=== PATIENT | female | born 1985 | race Caucasian/White ===

== ENCOUNTER 2022-02-18 09:45 | Outpatient (CLI) | payer OTHER, SELFPAY ==
--- NOTE | 2022-02-18 09:45 | CRLHL7_ITS ---
For Patients: As a result of the Century Cures Act, medical imaging exams and procedure reports are released immediately into your electronic medical record. You may view this report before your referring provider. If you have questions, please contact your health care provider. CLINICAL HISTORY: FOLLOW UP RIGHT OVARIAN COMPLEX CYST Comparison: 01/10/2022 TECHNIQUE: 2D nagy scale and color Doppler images were acquired of the pelvis using a transvaginal approach. FINDINGS: On transvaginal imaging, the uterus measures 7.9 x 4.2 x 5.0 cm. A small anterior mid uterine fibroid appears to be present measuring 1.0 x 0.9 x 0.8 cm. The endometrial lining appears normal and measures 10 mm in thickness. The left ovary is absent and the right ovary measures 5.2 x 2.2 x 4.0 cm. The right ovary demonstrates normal arterial and venous blood flow on color Doppler analysis. There are no suspicious fluid collections within the cul-de-sac. Hypoechoic cyst right ovary measuring 1.6 x 1.4 x 1.5 cm. Anechoic simple right ovarian cyst measuring 2.6 x 1.9 x 2.6 cm. IMPRESSION: 1.6 cm hemorrhagic right ovarian cyst and 2.6 cm simple right ovarian cyst. Both are considered normal. Dictated by Kirt Villareal MD @ 02/18/2022 10:48:18 AM (Electronically Signed)
== END 2022-02-18 09:46 | disposition home or self-care (01) ==
LOC: US 09:47
PROVIDERS: Visit Provider Physician Assistant
DX: N83.201 Unspecified ovarian cyst, right side (principal); N83.291 Other ovarian cyst, right side
CPT/HCPCS: 76830; 93976

== ENCOUNTER 2023-07-03 10:47 | Outpatient (CLI) | payer OTHER, SELFPAY | END 2023-07-03 10:48 | disposition home or self-care (01) | PROVIDERS: Visit Provider Obstetrics & Gynecology | DX: N97.9 Female infertility, unspecified (principal) | CPT/HCPCS: 82670; 83001; 83002; 84146; 84443 ==

== ENCOUNTER 2023-07-22 08:48 | Outpatient (CLI) | payer OTHER, SELFPAY ==
--- NOTE | 2023-07-22 09:15 | CRLHL7_ITS ---
For Patients: As a result of the Century Cures Act, medical imaging exams and procedure reports are released immediately into your electronic medical record. You may view this report before your referring provider. If you have questions, please contact your health care provider. Indication: Female infertility, unspecified Technique: Hysterosalpingogram performed in routine fashion. Fluoroscopic time 30 seconds. IMPRESSION: Postop changes of partial left salpingectomy. Normal right fallopian tube with normal spillage into the peritoneal cavity. No endometrial canal filling defect. Dictated by Kirt Villareal MD @ 07/22/2023 10:17:54 AM (Electronically Signed)
--- NOTE | 2023-07-22 09:44 | P.GYNPRC_ITS ---
Procedure Note Time Seen by Provider: 09:20 Date of procedure: 07/22/23 Pre-op diagnosis: Infertility Post-op diagnosis: same Procedure: Hysterosalpingogram Anesthesia: none Complications: None Surgeon: Sonu Vergara MD Estimated blood loss (mL): 0 IV fluids (mL): 0 Procedure Description: POSTPROCEDURE DIAGNOSIS: 1. Infertility 2. Patent fallopian tube on the right 3. Note of surgically absent left fallopian tube (s/p LSO for torsion in 2016), though suspicious for some residual tube on the left vs contrast artifact NAME OF PROCEDURE: Hysterosalpingogram. ANESTHESIA: None. COMPLICATIONS: None. PROCEDURE: After obtaining written consent, the patient was placed in the dorsal lithotomy position on the x-ray table. An open-sided bivalve speculum was introduced into the vagina and the cervix easily visualized. The cervix and vagina were then prepped with Betadine. A balloon tipped double-lumen catheter was then gently inserted through the cervical opening into the uterine cavity to the level of the fundus. The balloon was insufflated with 3 mL of air. The patient was repositioned in the supine position, covered, and the radiologist was called to the room. A hysterosalpingogram was then performed. A total of 8 cc of Optiray 300 water soluble contrast dye was injected through the double-lumen catheter under moderate pressure. There was immediate fill of the uterine cavity to the cornua and immediate fill of the right fallopian tube with free spillage. There was question of tubal remnant on the left, however this would be clinically inconsistent with previously reported left salpingo- oophorectomy in 2016, where operative note was reviewed and does describe a left salpingectomy. Suspect this was simply artifact from spillage from the right fallopian tube. The balloon was deflated. The catheter was removed. The speculum was removed. The patient tolerated the procedure well, though she did have moderate cramping discomfort during and just after the procedure. She was discharged to home in stable condition and to follow [facility].
== END 2023-07-22 08:49 | disposition home or self-care (01) ==
LOC: RAD 08:49
PROVIDERS: Visit Provider Obstetrics & Gynecology
DX: N97.9 Female infertility, unspecified (principal)
CPT/HCPCS: 58340; 74740; A4649; Q9967

== ENCOUNTER 2023-09-16 09:34 | Outpatient (CLI) | payer OTHER, SELFPAY ==
[2023-09-16 18:38] LABS: Chlamydia DNA Amplified* NOT DETECTED (No Detected); GC DNA Amplified* NOT DETECTED (No Detected)
== END 2023-09-16 09:35 | disposition home or self-care (01) ==
PROVIDERS: PCP Family Medicine; Visit Provider Registered Nurse
DX: Z34.91 Encounter for supervision of normal pregnancy, unspecified, first trimester (principal); Z3A.08 8 weeks gestation of pregnancy
CPT/HCPCS: 76817; 86592; 86703; 86704; 86706; 86762; 86787; 86803; 86850; 86900; 86901; 87086; 87340; 87491; 87591

== ENCOUNTER 2024-02-10 09:20 | Outpatient (CLI) | payer OTHER, SELFPAY | END 2024-02-10 09:21 | disposition home or self-care (01) | LOC: NFLDREF 02-12 08:44 | PROVIDERS: PCP Family Medicine; Referring Provider Family Medicine; Visit Provider Advanced Practice Midwife | DX: Z34.93 Encounter for supervision of normal pregnancy, unspecified, third trimester (principal); Z3A.29 29 weeks gestation of pregnancy | CPT/HCPCS: 86592 ==

== ENCOUNTER 2024-03-25 09:02 | Outpatient (CLI) | payer OTHER, SELFPAY ==
[2024-03-26 09:48] LABS: Strep B DNA Probe Negative (Negative)
[2024-03-26 10:24] LABS: Strep B Susceptibility Needed? No
--- NOTE | 2024-03-30 07:00 | PC.NURSE ---
Center telephone call less than 37 weeks Date of call: 03/30/2024 Time of call: 0686 Name of person calling: Katherine Donohue phone # to reach you at: in chart patient: P: 2 EDC: 04/23 Gestational age: 36.4 weeks Provider: Reason for calling (patient's words): Pt reports mild contractions or tightening every 5-10 minutes start at 10pm last night. Pt denies leaking of fluid or bleeding. Pt reports baby is moving normally. Pt states she has been drinking plenty of water. Patient is greater than 20 weeks and less than 37 weeks and instructed to come to Center for evaluation. RN offered labor rule out evaluation at [facility] [place]. Pt declined at this time. Patient verbalized understanding: yes Is patient coming for evaluation? Not at this time. Pt chose to stay home for now and continue to track contractions. Pt will call center if planning to come in for triage evaluation. Telephone conversation guided by approved policy and flow chart, Telephone Calls From Patient's, approved at [facility]ology [facility] March 2023.
== END 2024-03-25 09:03 | disposition home or self-care (01) ==
PROVIDERS: PCP Family Medicine; Visit Provider Midwife
DX: Z34.93 Encounter for supervision of normal pregnancy, unspecified, third trimester (principal); Z3A.36 36 weeks gestation of pregnancy
CPT/HCPCS: 87081; 87653

== ENCOUNTER 2024-04-17 00:24 | Inpatient (IN) | payer OTHER, SELFPAY ==
[2024-04-17] VITALS (17 sets, daily range): BP systolic 109–131; BP diastolic 58–90; PULSE 55–85; RESP 16–18; TEMP 36.6–37.3; O2SAT 97–98; BMI 25.3
--- NOTE | 2024-04-17 02:11 | P.LDBA_ITS ---
Subjective History of Present Illness Date Seen: 04/17/24 Narrative: Katherine is a 39 yo at 40 0/7 weeks gestation being admitted to Labor and Delivery for spontaneous onset of labor at 2330 last evening. She reports she was awoke by contractions, went to the bathroom, and had a gush of clear fluid when she returned to bed. She was coping well upon arrival and RN assisted her to side lying release due to back pain. She is supported in labor by her , Pete. Her full history and physical was dictated by JOELLE Lunsford on 04/01/2024. Please see this for details. Specific Issues/Plans G 3 P 2001 Spouse: Pete. Children: Aidan Tucker. Baby: [place]. H&P completed 04/01/2024 by Sury [employer] 1. Advanced maternal age. Genetic screening: Declines Level 2 ultrasound: EFW 97% otherwise normal 2. Precipitous delivery with 2nd baby. Delivered by ED physician. Discussed IOL if advanced dilation at visit otherwise desires to wait until 41 weeks. 3. Mild intermittent asthma. Managed with PRN ProAir. 4. 2016: LSO for ovarian torsion 5. 2019: Laparoscopic reduction of right ovarian torsion Flu: Completed Covid: Completed and boosted x1. Not up-to-date. Recommended. Patient declin es. Tdap: 02/24/2024 OB - Problem Based A/P Additional Plan (1) Pain during labor: Status: Acute (2) AMA (advanced maternal age) multigravida 35+: Status: Acute (3) 40 weeks gestation of : Status: Acute (4) SROM (spontaneous rupture of membranes): Status: Acute (5) Exercise-induced asthma: Status: Chronic Plan ASSESSMENT:? 39 at 40 0/7 weeks gestation? complicated by:?AMA, hx of precip delivery, mild asthma, hx of ovarian torsion Labor type: Spontaneous, Active labor? Category 1 FHR pattern.?? Labor complicated by: none? GBS negative? ? PLAN:? 1. Routine intrapartum cares as ordered. Continue with expectant management? 2. Monitoring per policy, intermittent? 3. Planning unmedicated . Desires water . Consent signed. Hep C negative. Candidate for analgesia of choice.?? 4. Patient encouraged to reposition and ambulate to promote physiologic labor and .? 5. Anticipate ? Delivery/Labor/Induction Plan Plan: expectant management OB Exam Physical Exam Vital signs: Temp Pulse Resp BP 98.6 F 65 18 128/58 L 04/17/24 01:56 04/17/24 01:57 04/17/24 01:56 04/17/24 01:57 Narrative: Vitals Reviewed Constitutional:? Alert and oriented x3 HEENT:? Normocephalic, atraumatic Neck:? Supple Lungs:? Clear to auscultation bilaterally Heart:? Regular rate and rhythm, no murmur, rub or gallop Abdomen:? Soft, nontender, and gravid. Vertex by Toby's, confirmed with cervical exam. Extremities:? No edema or erythema Cervix: 5.5 cm/80%/0 station/vertex per RN NST: 125 bpm/moderate variability/15x15 accelerations/no decelerations/contractions every 1-3 minutes Detailed Labor and Delivery Exam Patient Gravid: Yes
--- NOTE | 2024-04-17 02:11 | W.PM.OBVAGDE ---
OB Procedure Vag Delivery Mother Details Mother Details: The patient is a 39 year-old, 3, now Para 3, admitted on 04/17/24 at 40.0 weeks gestation. : 3 Para: 3 Weeks Gestation: 40.0 Admission Date: 04/17/24 Additional Details Amniotic Membrane Status: SROM Amniotic Membrane Rupture Date: 04/17/24 Amniotic Membrane Rupture Time: 23:30 Amniotic Membrane Fluid Description: Clear Analgesia/Anesthesia Type: None Waterbirth: No Pitcoin: No (Pt declined unless necessary) Intrapartal Events: Precipitous Labor <3 Hrs Labor Onset: 23:30 Complete: 01:13 Pushin:13 Heart: heart tones during second stage were not obtained due to precipitous delivery. NST was reactive on admission and reassuring via intermittent monitoring prior to 2nd stage. Delivery Details Delivery Date: 04/17/24 Delivery Time: 01:15 Route of delivery: Gender: Male Viability: Alive; Heart Rate Present Position at Delivery: OA Delivery Details: Patient was admitted for spontaneous onset of labor with SROM of clear fluid at 2330 and progressed normally. Patient arrived and was assisted to side lying release and precipitously progressed to complete, assumed with pushing at 0113. CNM was called urgently to bedside when head was . of a viable male at 0115 in left side tilt on the bed. Vertex delivered TERESA. No nuchal cord or shoulder. Body delivered easily and without incident. passed to mothers abdomen with a vigorous cry. Cord was clamped and cut at > 5 minutes. APGARS were 9 at one minute and 9 at five minutes respectively. Mouth was bulb suctioned. Intact placenta with a 3 vessel cord delivered spontaneously at 0125. Fundus firm. Small perineal abrasion identified, after hemostasis no repair was indicated. QBL 100 cc. Mother and baby stable; mother plans to breastfeed. Infant weight pending. 1 Minute Interval Total Score: 9 5 Minute Interval Total Score: 9 Additional Details Shoulder Dystocia: No Placenta Delivery Time: 01:25 Placental Delivery Description: Spontaneous Procedure Done: Global Blood Loss: 100 Laceration: Superficial Blood Loss Measurement Type: QBL Bakri Used: No Sponge/Need Count Correct: Yes Cord Vessel Description: 3 Vessels Event Summary Status: Mother and were stable after delivery. Disposition: floor
[2024-04-17] MEDS: DOCUSATE SODIUM 100 MG CAPSULE PO (12:22)
[2024-04-18 02:15] VITALS: BP 102/56; PULSE 74; RESP 16; TEMP 36.5; O2SAT 96
[2024-04-18] MEDS: DOCUSATE SODIUM 100 MG CAPSULE PO (03:12)
[2024-04-18 08:50] VITALS: BP 109/71; PULSE 77; RESP 16; TEMP 36.6; O2SAT 97
--- NOTE | 2024-04-18 10:05 | P.DS_ITS ---
DS: Providers Provider Date Seen: 04/18/24 Date of admission: 04/17/24 00:24 Primary care physician: Meagan Antunez DO Admitting Clinician: Sara Medeiros CNM Attending Physician on discharge: Sara Medeiros CNM Date of Discharge: 04/18/24 DS: Diagnosis Discharge Diagnosis (1) Lactating mother: Status: Acute (2) care following vaginal delivery: Status: Acute Exam Narrative: Exam Narrative: GENERAL APPEARANCE:? normal affect, alert, no distress? MOOD:? appropriate? CHEST:? clear to auscultation and percussion? HEART:? regular rate and rhythm? ABDOMEN:? soft, non-tender the uterine fundus is 2 cm Below Umbilicus, Midline and is appropriate for the stage of recovery. ? PERINEUM:? mild edema of the perineum, there is a superficial laceration that is healing well.? EXTREMITIES:? normal and no edema? Patient has no complaints? No active bleeding?? Doing well? She is requesting discharge home.? Const: Vital Signs, click to edit/add: Vital Signs - 24 hr 04/17/24 12:23 04/17/24 16:41 04/17/24 20:12 Temperature 97.9 F 97.9 F 97.9 F Pulse Rate [Left P ulse Oximeter] 78 79 74 Respiratory Rate 18 18 16 Blood Pressure [Ri ght Arm] 109/69 114/69 109/66 Pulse Oximetry 97 98 98 Oxygen Delivery Me thod Room Air Room Air Room Air 04/18/24 02:15 04/18/24 08:50 Temperature 97.7 F 97.8 F Pulse Rate [Left P ulse Oximeter] 74 77 Respiratory Rate 16 16 Blood Pressure [Ri ght Arm] 102/56 L 109/71 Pulse Oximetry 96 97 Oxygen Delivery Me thod Room Air Room Air Documenting provider has reviewed patient's vital signs: yes OB - DS: Summary Hospital Course Hospital Course: Katherine is a 39 year old G 3 P 3 at 40.0 weeks gestation that was admitted to the Center on 04/17/24 for spontaneous labor. She had an uncomplicated vaginal delivery. She delivered a viable male infant. She is breast feeding and is working on a deeper latch. Will plan to see before discharge today. the patient has done well. Her pain is well controlled with current medications.? She has no new complaints.? Urinary output is adequate and she is voiding without difficulty.? Has a good appetite, is tolerating a general diet, is passing flatus, and has had a bowel movement.? Has scant amount of rubra lochia.? She is ambulating well. Her partner is planning a vasectomy for contraception but she is also consider continuing on hormonal control for menstruation suppression for ovarian preservation due to a history of ovarian torsion x2. She is consider mini pill vs IUD. She declines medications on discharge and will get OTC instead. Peripartum Data delivery method: Vaginal Laceration description: Superficial Episiotomy description: None complications: none Marked Tree Gender: Male Discharge Plan: Home Status at Discharge Functional status at discharge: independent ambulation Overall status at discharge: patient is progressing back to baseline Time Spent with Patient Time attestation: Total time spent providing and/or coordinating discharge services: Discharge Plan Discharge Disposition: Home, Self-Care Date of Admission: 04/17/24 00:24 Primary Care Provider: Meagan Antunez Condition: Stable Anticipated Discharge Date/Time: 04/18/24 11:00 Discharge Medications: Continued albuterol sulfate [ProAir HFA] 90 mcg/actuation HFA aerosol inhaler 2 puff inhalation Q6H PRN DHA 200 mg capsule 200 mg PO DAILY Discharge Orders: Discharge Order (Routine); Ordered 04/18/24 Ordered By: Penny Moreno Patient Education: OB Vaginal/Breast Feeding Additional Instructions: Discharge instructions were reviewed with the patient including signs and symptoms of infection and home going medications.? Lifting Restrictions: 20 pounds for 6? weeks? ?? Do not drive while taking narcotic pain meds.? Off Work or School for 6 weeks.? ?? Symptoms to report to doctor:? -Bleeding that saturates more than one pad per hour? -Passing clots larger than the size of a golf ball? -Pain not relieved by prescribed medication? -Fever above 100.4 degrees Fahrenheit? -A foul vaginal odor? -Difficulty in emotions, mood and functions? -Thoughts of hurting yourself and/or ? -Painful, reddened area in your breast? -Any drainage, redness or tenderness in your IV/epidural site? -Severe headache that doesn't improve after taking medications? -Changes in vision, including temporary loss of vision, blurred vision, and/or light sensitivity? -Upper abdominal pain (usually under ribs on the right side)? -Decrease in urination or painful, frequent urinating? -Chest pain? -Shortness of breath? -Tenderness or pain with redness and/swelling in the calf(s) of your leg? ?? Follow Up in clinic in 2 and 6 weeks.? ?? consultation services are available to all mothers and babies for the first year after delivery.? To make an appointment, please call [phone].? Activity Level: Activity as Tolerated Discharge Diet: Regular Follow Up Appointments: [facility] [Provider Group] Forms: MyHealth Info Instructions
[2024-04-19 13:12] LABS: Rapid Plasma Reagin (RPR) Non Reactive (Non Reactive)
== END 2024-04-18 11:40 | disposition home or self-care (01) | DRG 807 ==
LOC: OB OUT 00:25 → OB 00:25
PROVIDERS: Admitting Provider Advanced Practice Midwife; PCP Family Medicine; Visit Provider Advanced Practice Midwife
DX: O42.02 Full-term premature rupture of membranes, onset of labor within 24 hours of rupture (principal); Z37.0 Single live birth; Z3A.40 40 weeks gestation of pregnancy; O62.3 Precipitate labor
CPT/HCPCS: 36415; 86592; A9270